=== PATIENT | male | born 1965 | race Caucasian/White ===

== ENCOUNTER 2020-04-06 11:11 | Outpatient (RCR) | payer OTHER, SELFPAY | END 2020-04-25 13:49 | disposition home or self-care (01) | LOC: HO.WCC 11:11 | PROVIDERS: PCP Internal Medicine; Visit Provider Surgery | DX: L89.892 Pressure ulcer of other site, stage 2 (principal); E66.09 Other obesity due to excess calories; Z98.84 Bariatric surgery status | CPT/HCPCS: 99212 ==

== ENCOUNTER 2025-04-18 12:08 | Outpatient (AMB) | payer OTHER, SELFPAY ==
--- NOTE | 2025-04-18 12:30 | MHC.OFFVISWM ---
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 59.5 Allergies No Known Allergies Allergy (Verified 04/18/25 12:30) Medication List - Last Reconciled 04/18/25 by Gus Kraft MD aspirin (Adult Aspirin Regimen) 81 mg PO DAILY atorvastatin 10 mg PO DAILY budesonide-formoterol 160-4.5 mcg/actuation (Symbicort) 2 puffs inhalation BID cholecalciferol (vitamin D3) 25 mcg PO DAILY dapagliflozin propanediol (Farxiga) 10 mg PO DAILY losartan 100 mg PO DAILY [magnesium orally 3x a week; ] metformin 500 mg PO DAILY omeprazole 20 mg PO DAILY umeclidinium 62.5 mcg/actuation (Incruse Ellipta) 1 inh inhalation DAILY HPI HPI [employer]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 [facility] BMI 59.5: Details: Start time: 12.40pm, End time: 1.10pm ?I spent 25 minutes speaking with the patient on the phone plus an additional 5 minutes reviewing and updating records for a total of 30 minutes HPI Comments Details: Previous weight loss efforts: LRYGB (preop: 420lbs, lowest: 205lbs) Wakes up: 3.30am to 7am, Sleeps: 10pm [employer] Breakfast: 5am (egg with cheese and sausage) Lunch: 12-1pm (sandwich) Dinner: 5-7pm(eats out) Snacks: 11am (peanut butter crackers), 4pm (same), 9pm (chips) Exercise: Treadmill (inclines and calories tracking) Beverages: Coffee: (1-2 cup/d black with 2 sugars), Tea: none, Soda: Gingerale (1/wk), Juice: none, ETOH: 1-2/month [facility] Medical History (Updated 04/18/25 @ 12:36 by Gus Kraft MD) Non-insulin dependent type 2 diabetes mellitus Morbid obesity Surgical History (Updated 03/02/25 @ 12:44 by Ne Zarate CMA) History of surgery on wrist History of hip surgery S/P gastric bypass Family History (Updated 03/02/25 @ 08:28 by Ne Zarate CMA) Mother WPW syndrome Father No problems noted. Social History (Updated 03/02/25 @ 08:28 by Ne Zarate CMA) Alcohol intake: current Alcohol intake frequency: holidays/special occasions only Patient Tobacco Use Status: Never used Tobacco Telehealth Telehealth Telehealth Platform: Telephone Location of provider rendering services: practice address Location of patient: address on file Patient Identification confirmed using: Name, : Yes Telehealth method: voice only Patient verbally consented to treatment: Yes Patient verbally consented to billing insurance company: Yes Patient informed of any privacy concerns related to visit: Yes Minutes spent on Phone/Video with Pt.: 30 Assessment & Plan Assessment & Plan (1) Morbid obesity: Code(s): E66.01 - Morbid (severe) obesity due to excess calories Category: Medical Plan: The patient has medically treated diabetes diagnosed by his PCP. In addition, he is severely superobese with a BMI of 59.6 kg/m2 and additionally had a previous gastric bypass surgery which makes the bariatric surgery option more complex and risky. In my opinion, the patient would benefit from using the Mounjaro to treat his diabetes and assist him with weight loss while he is actively participating in my program. My office will try to authorize it. Please let me know when you receive it so I can give you a meal and exercise plan. Common side effects include nausea, vomiting, constipation, diarrhea, abdominal pain. Please let me know if you develop any of these symptoms.
== END 2025-04-18 13:10 | disposition home or self-care (01) ==
LOC: HO.HBS 12:08
PROVIDERS: PCP Internal Medicine; Visit Provider Surgery
DX: E66.01 Morbid (severe) obesity due to excess calories (principal)
CPT/HCPCS: 99203